=== PATIENT | male | born 1965 | race African-American/Black ===

== ENCOUNTER 2019-01-03 09:30 | Emergency (ER) | payer OTHER ==
--- NOTE | 2019-01-03 10:13 | PDOC ---
History of Present Illness - General Chief Complaint: Head/Neck problem Stated Complaint: NUMBNESS FOOT Time Seen by Provider: 01/03/19 09:49 History Source: Patient Exam Limitations: No Limitations - History of Present Illness Initial Comments: 53 year old male with PMH HTN, DM, schizophrenia, depression sent to ED from [facility] for bilateral LE pain x"many months" worsening today. Pt reported he was in physical therapy, and felt too much pain to his legs to continue, prompting him to come to the Emergency Department. Pt admitted to generalized pain below the knee bilaterally, describing the pain as waxing/ waning, numbness, worse with exertion, better with rest. Past History - Past Medical History Allergies/Adverse Reactions: Allergies Allergy/AdvReac Type Severity Reaction Status Date / Time haloperidol [From Haldol] Allergy Verified 01/03/19 09:56 haloperidol lactate Allergy Verified 01/03/19 09:56 [From Haldol] HALDOL Allergy Mild Uncoded 01/03/19 09:56 Home Medications: Ambulatory Orders Sennosides [Senna -] 2 tab PO HS #0 tablet 12/06/12 Acetaminophen [Mapap] 500 mg PO BID 01/03/19 Ammonium Lactate Lotion [Lac-Hydrin 12% Lotion -] 1 applic TP ASDIR 01/03/19 Baclofen 10 mg PO HS 01/03/19 Clozapine [Clozaril] 300 mg PO HS 01/03/19 Diclofenac Sodium [Voltaren] 2 gm TP TID 01/03/19 Divalproex Sodium [Depakote] 500 mg PO BID 01/03/19 Divalproex Sodium [Depakote] 750 mg PO HS 01/03/19 Famotidine [Pepcid] 40 mg PO DAILY 01/03/19 Gabapentin 300 mg PO TID 01/03/19 Meloxicam 15 mg PO HS 01/03/19 Tamsulosin HCl [Flomax -] 0.4 mg PO DAILY 01/03/19 metFORMIN HCL [Glucophage -] 500 mg PO BID 01/03/19 Diabetes: Yes HTN: Yes Psychiatric Problems: Yes (schizophrenia) Comment:: AMBULATES: Cane/Walker RESIDES: [facility] - Suicide/Smoking/Psychosocial Hx Smoking Status: No Smoking History: Unknown if ever smoked Have you smoked in the past 12 months: No Number of Cigarettes Smoked Daily: 7 Information on smoking cessation initiated: No 'Breaking Loose' booklet given: 10/08/11 Hx Alcohol Use: No Drug/Substance Use Hx: No Substance Use Type: None Hx Substance Use Treatment: No Review of Systems - Review of Systems Able to Perform ROS?: Yes Comments:: General: denied fever, chills, generalized weakness. HEENT: denied sore throat, rhinorrhea, ear pain. Cardiovascular: denied chest pain, palpitations, syncope, diaphoresis. Respiratory: denied shortness of breath, cough, sputum production, hemoptysis. Gastrointestinal: denied abdominal pain, nausea, vomiting, diarrhea, constipation, blood in stool. Genitourinary: denied dysuria, increased urinary frequency, hematuria, urinary incontinence, flank pain. Back: denied back pain. Musculoskeletal: admitted to bilateral LE pain. Neurological: admitted to numbness. denied headache, dizziness, tingling, weakness. Integumentary: denied rash, laceration, abrasion. Hematologic/Lymphatic: denied bruising or bleeding. *Physical Exam - Vital Signs Last Vital Signs Temp Pulse Resp BP Pulse Ox 97.7 F 97 H 16 126/86 100 01/03/19 09:30 01/03/19 09:30 01/03/19 09:30 01/03/19 09:30 01/03/19 09:30 - Physical Exam Comments: Constitutional: Well-nourished, Well-developed, appearing stated age. HEENT: head is normocephalic, atraumatic. EOMI. PERRLA. Neck: supple. Full ROM. Cardiovascular: regular heart rhythm. no murmurs. no pericardial friction rub. Respiratory: clear to auscultation bilaterally. no crackles, rhonchi or wheezing. no stridor. Gastrointestinal: soft, nontender. normal bowel sounds. no rebound, guarding, masses. Extremities: peripheral pulses intact. no lower extremity edema. no calf tenderness bilaterally. no calf swelling bilaterally. Neurological: CN 2-12 grossly intact. moves all four extremities. Psych: awake, alert, oriented x3. follows commands. answers questions appropriately. Skin: no rash or lesions to bilateral LE/feet. decreased hair to bilateral LE. ED Treatment Course - LABORATORY CBC & Chemistry Diagram: 01/03/19 10:35 01/03/19 10:35 Medical Decision Making - Medical Decision Making 53 year old male with above PMH sent to ED from [facility] for bilateral lower extremity pain xmany months worsening today during physical therapy. Initial Vital Signs Temp Pulse Resp BP Pulse Ox 97.7 F 97 H 16 126/86 100 01/03/19 09:30 01/03/19 09:30 01/03/19 09:30 01/03/19 09:30 01/03/19 09:30 Afebrile. No tachycardia. No tachypnea. No hypotension. No hypoxia on room air. Labs ordered: CBC, CMP Medications ordered: tylenol 975 mg PO once Imaging ordered: none 01/03/19 11:43 CBC WBC 6.8 K/mm3 (4.0-10.0) 01/03/19 10:35 RBC 4.05 M/mm3 (4.00-5.60) 01/03/19 10:35 Hgb 12.5 GM/dL (11.7-16.9) 01/03/19 10:35 Hct 36.9 % (35.4-49) 01/03/19 10:35 MCV 91.2 fl (80-96) 01/03/19 10:35 MCH 30.8 pg (25.7-33.7) 01/03/19 10:35 MCHC 33.8 g/dl (32.0-35.9) 01/03/19 10:35 RDW 15.9 % (11.9-15.9) D 01/03/19 10:35 Plt Count 305 K/MM3 (134-434) D 01/03/19 10:35 MPV 9.5 fl (7.5-11.1) 01/03/19 10:35 Absolute Neuts (auto) 3.8 K/mm3 (1.5-8.0) 01/03/19 10:35 Neutrophils % 55.6 % (42.8-82.8) D 01/03/19 10:35 Lymphocytes % 36.7 % (8-40) D 01/03/19 10:35 Monocytes % 6.8 % (3.8-10.2) 01/03/19 10:35 Eosinophils % 0.7 % (0-4.5) 01/03/19 10:35 Basophils % 0.2 % (0-2.0) 01/03/19 10:35 Nucleated RBC % 0 % (0-0) 01/03/19 10:35 No leukocytosis. No anemia. 01/03/19 12:15 CMP Sodium 145 mmol/L (136-145) 01/03/19 10:35 Potassium 4.2 mmol/L (3.5-5.1) 01/03/19 10:35 Chloride 112 mmol/L (98-107) H 01/03/19 10:35 Carbon Dioxide 30 mmol/L (21-32) 01/03/19 10:35 Anion Gap 4 MMOL/L (8-16) L 01/03/19 10:35 BUN 19.1 mg/dL (7-18) H 01/03/19 10:35 Creatinine 0.7 mg/dL (0.55-1.3) 01/03/19 10:35 Est GFR (CKD-EPI)AfAm 124.00 01/03/19 10:35 Est GFR (CKD-EPI)NonAf 106.99 01/03/19 10:35 Random Glucose 102 mg/dL (74-106) 01/03/19 10:35 Calcium 9.5 mg/dL (8.5-10.1) 01/03/19 10:35 Magnesium 2.1 mg/dL (1.8-2.4) 01/03/19 10:35 Total Bilirubin 0.2 mg/dL (0.2-1) 01/03/19 10:35 AST 5 U/L (15-37) L 01/03/19 10:35 ALT 12 U/L (13-61) L 01/03/19 10:35 Alkaline Phosphatase 65 U/L (45-117) 01/03/19 10:35 Total Protein 6.8 g/dl (6.4-8.2) 01/03/19 10:35 Albumin 3.4 g/dl (3.4-5.0) 01/03/19 10:35 No electrolyte abnormalities. No ERIC. No transaminitis. Pt informed of results. Pt to be transported back to [facility]. Follow up for vascular surgery given for evaluation of claudication. *DC/Admit/Observation/Transfer Diagnosis at time of Disposition: Leg pain - Discharge Dispostion Disposition: RESIDENTIAL FACILITY Condition at time of disposition: Improved Decision to Admit order: No - Referrals Referrals: Xu Ralph [Primary Care Provider] - Satish Ayala MD [Non Staff, Medical] - - Patient Instructions Printed Discharge Instructions: DI for Leg Pain Additional Instructions: Lab work was normal. Follow up with his primary care doctor within 3 days. His care is not complete until he follows up. Follow up with vascular surgery within 5 days to assess for claudication. I have provided you with a referral. Take Tylenol over the counter for pain. Take as advised on label. Return to the Emergency Department for skin color changes, inability to walk, weakness, numbness, chest pain, shortness of breath or any other new, worsening or concerning symptoms. - Post Discharge Activity
[2019-01-03] MEDS ORDERED: ACETAMINOPHEN 325 MG TABLET (FP) PO ONE (10:25)
[2019-01-03] MEDS ORDERED: ACETAMINOPHEN 325 MG TABLET (FP) ONE (10:30)
--- NOTE | 2019-01-03 10:42 | PDOC ---
Attending Attestation - Resident Resident Name: Kailey Wick - ED Attending Attestation I have performed the following: I have examined & evaluated the patient, The case was reviewed & discussed with the resident, I agree w/resident's findings & plan, Exceptions are as noted - HPI HPI: 01/03/19 10:51 53yo M hx NIDDM, schizophrenia, HTN presents to the ED with 6 months of pressure and b/l LE numbness, worse in his feet and knees. He states he was at PT this morning and was having difficulty walking due to the symptoms and thus was sent to the ED. Pt denies worsening of the symptoms recently and states he always has difficulty ambulating at PT. He denies any associated weakness, back pain, fevers, chills, urine/stool incontinence or retention. Pt has not told his PMD about this yet. On review of his medications, pt is on gabapentin 300mg TID, he is not sure why. - Physicial Exam PE: 01/03/19 11:03 GENERAL: Awake, alert, and fully oriented, in no acute distress HEAD: No signs of trauma EYES: PERRLA, EOMI, sclera anicteric, conjunctiva clear ENT: Auricles normal inspection, hearing grossly normal, nares patent, oropharynx clear without exudates. Moist mucosa. Adentulous NECK: Normal ROM, supple, no lymphadenopathy, JVD, or masses LUNGS: Breath sounds equal, clear to auscultation bilaterally. No wheezes, and no crackles HEART: Regular rate and rhythm, normal S1 and S2, no murmurs, rubs or gallops ABDOMEN: Soft, nontender, normoactive bowel sounds. No guarding, no rebound. No masses EXTREMITIES: Normal range of motion, no edema. No clubbing or cyanosis. No cords, erythema, or tenderness BACK: No midline cervical, thoracic, or lumbar ttp. NEUROLOGICAL: Normal speech, cranial nerves intact, negative pronator drift, 5/ 5 strength in all 4 extremities, normal sensation to light touch in all 4 extremities, normal cerebellar exam, normal gait, normal reflexes and tone. Normal perineal sensation. SKIN: Warm, Dry, normal turgor, no rashes or lesions noted. - Medical Decision Making 01/03/19 11:07 53yo M hx DM, HTN, schizophrenia presents to the ED with 6 months of b/l LE pain and numbness Vitals wnl Exam wnl neurolgically, 2+ DP and TP pulses b/l Likely diabetic neuropathy, as pt is on gabapentin Unlikely cauda equina as no red flags, exam wnl. Unlikely claudication/PAD as very strong peripheral pulses Plan to check basic labs, pain control, reassess 01/03/19 12:31 Labs wnl PT ambulating on his own to bathroom He feels better Likely peripheral neuropathy He is clinically stable for DC home I discussed the physical exam findings, ancillary test results and final diagnoses with the patient. I answered all of the patient's questions. The patient was satisfied with the care received and felt comfortable with the discharge plan and treatment plan. The patient will call their primary care physician within 24 hours to arrange follow-up and will return to the Emergency Department with any new, persistent or worsening symptoms.
[2019-01-03 10:46] VITALS: BMI 24.9
[2019-01-03 11:18] LABS: BASO % 0.2 % (0-2.0); EOS % 0.7 % (0-4.5); HEMATOCRIT 36.9 % (35.4-49); HEMOGLOBIN 12.5 GM/dL (11.7-16.9); LYMPH % 36.7 % (8-40); MCH 30.8 pg (25.7-33.7); MCHC 33.8 g/dl (32.0-35.9); MEAN CELL VOLUME 91.2 fl (80-96); MEAN PLT VOLUME 9.5 fl (7.5-11.1); MONO % 6.8 % (3.8-10.2); NEUT % 55.6 % (42.8-82.8); PLATELET COUNT 305 K/MM3 (134-434); RBC 4.05 M/mm3 (4.00-5.60); RDW 15.9 % (11.9-15.9); WHITE BLOOD COUNT 6.8 K/mm3 (4.0-10.0)
[2019-01-03 11:46] LABS: ALBUMIN 3.4 g/dl (3.4-5.0); BILIRUBIN,TOTAL 0.2 mg/dL (0.2-1); BLOOD UREA NITROGEN 19.1 mg/dL (7-18); CALCIUM 9.5 mg/dL (8.5-10.1); CREATININE 0.7 mg/dL (0.55-1.3); MAGNESIUM 2.1 mg/dL (1.8-2.4); POTASSIUM 4.2 mmol/L (3.5-5.1); TOT PROT 6.8 g/dl (6.4-8.2)
[2019-01-03 12:53] VITALS: BP 128/81; PULSE 98; TEMP 97.4
== END 2019-01-03 14:08 ==
LOC: JER 09:30
DX: M79.661 Pain in right lower leg (principal); M79.662 Pain in left lower leg; F20.9 Schizophrenia, unspecified; E11.9 Type 2 diabetes mellitus without complications; I10 Essential (primary) hypertension; F32.9 Major depressive disorder, single episode, unspecified
CPT/HCPCS: 36415; 80053; 83735; 85025; 99283-25

== ENCOUNTER 2019-06-04 09:40 | Inpatient (IN) | payer OTHER ==
--- NOTE | 2019-06-04 09:59 | PDOC ---
History of Present Illness - General Stated Complaint: FALL Time Seen by Provider: 06/04/19 09:46 History Source: Patient Exam Limitations: No Limitations - History of Present Illness Initial Comments: 06/04/19 10:03 Mr. Cullen is a 53 yo M with a history of Schizophrenia and Diabetes who presents to the ER via EMS due to fall Pt has been noted by staff to be increasingly weak such that now he has difficulty ambulating independently He has had multiple visits to an outside hospital Staff members became concerned today when Subhash was unable to stand at the window to get his medications today He apparently stood in his room and was witnessed by his aid to slid down to the ground He was not noted to strike his head He was unable to get himself up to a standing position after this He has no known fevers or chills Per staff member, he hordes food in his room but they are not sure how much he is eating He is not known to do any type of drugs but he has been smoking heavily daily 06/04/19 10:06 Per Subhash, he is sleepy because he was awoken at 7am for breakfast and his sleep was disrupted He has no complaints of headache, neck pain, chest pain, shortness of breath, weakness, numbness 06/04/19 10:10 ROS: GENERAL/CONSTITUTIONAL: Yes: generalized weakness No: fever, chills, loss of appetite. HEAD, EYES, EARS, NOSE AND THROAT: No: change in vision, ear pain, discharge, sore throat, throat swelling. CARDIOVASCULAR: No: chest pain, lightheadedness, palpitations, syncope RESPIRATORY: No: cough, shortness of breath, wheezing, hemoptysis, stridor. GASTROINTESTINAL: No: nausea, vomiting, diarrhea, abdominal cramping, rectal bleeding, constipation. GENITOURINARY: No: dysuria, hematuria, frequency, urgency, flank pain. MUSCULOSKELETAL: No: back pain, neck pain, joint pain, muscle swelling or pain SKIN AND BREASTS: No: lesions, pallor, rash or easy bruising. NEUROLOGIC: No: headache, vertigo, paresthesias, weakness ENDOCRINE: No: unexplained weight gain or loss HEMATOLOGIC/LYMPHATIC: No: anemia, easy bleeding, swelling nodes. PE: GENERAL: The patient is in no acute distress, pt is somnolent on examination, awakens to verbal stimuli. HEAD: Normal with no signs of trauma. EYES: PERRLA, EOMI, sclera anicteric, conjunctiva clear. ENT: Edentous, Ears normal, nares patent, oropharynx clear without exudates. Moist mucous membranes. NECK: Normal range of motion, supple without midline tenderness LUNGS: Breath sounds equal, clear to auscultation bilaterally. No wheezes, and no crackles. HEART:Regular rate and rhythm, normal S1 and S2 without murmur, rub or gallop. ABDOMEN: Soft, nontender, normoactive bowel sounds. No guarding, no rebound. EXTREMITIES: Normal range of motion, (+) 3 edema. NEUROLOGICAL: Cranial nerves II through XII grossly intact. Pt speech seems slurred, Sensation is in tact, moving all extremities MUSCULOSKELETAL: Back non-tender to palpation SKIN: Warm, Dry, normal turgor, no rashes or lesions noted. Is this a multiple visit Asthma Patient?: No Past History - Past Medical History Allergies/Adverse Reactions: Allergies Allergy/AdvReac Type Severity Reaction Status Date / Time haloperidol [From Haldol] Allergy Verified 06/04/19 10:07 haloperidol lactate Allergy Verified 06/04/19 10:07 [From Haldol] HALDOL Allergy Mild Uncoded 06/04/19 10:07 Home Medications: Ambulatory Orders Sennosides [Senna -] 2 tab PO HS #0 tablet 12/06/12 Baclofen 10 mg PO HS 01/03/19 Clozapine [Clozaril] 300 mg PO HS 01/03/19 Divalproex Sodium [Depakote] 500 mg PO DAILY 01/03/19 Divalproex Sodium [Depakote] 750 mg PO HS 01/03/19 Famotidine [Pepcid] 40 mg PO HS 01/03/19 Gabapentin 300 mg PO TIDCM 01/03/19 Tamsulosin HCl [Flomax -] 0.4 mg PO HS 01/03/19 metFORMIN HCL [Glucophage -] 500 mg PO BIDAC 01/03/19 Acetaminophen [Tylenol Extra Strength] 500 mg PO BIDAC 06/04/19 COPD: No Diabetes: Yes HTN: Yes Psychiatric Problems: Yes (schizophrenia) - Psycho Social/Smoking Cessation Hx Smoking Status: No Smoking History: Unknown if ever smoked Have you smoked in the past 12 months: No Number of Cigarettes Smoked Daily: 7 'Breaking Loose' booklet given: 10/08/11 Hx Alcohol Use: No Drug/Substance Use Hx: No Substance Use Type: None Hx Substance Use Treatment: No ED Treatment Course - LABORATORY CBC & Chemistry Diagram: 06/07/19 05:24 06/07/19 05:24 Medical Decision Making - Medical Decision Making 06/04/19 10:39 CXR: no acute pathology 06/04/19 11:23 Laboratory Tests 06/04/19 06/04/19 10:26 10:26 WBC 12.9 H Hgb 14.3 Hct 44.9 D Plt Count 308 BUN 10.6 Creatinine 0.7 Creatine Kinase 132 Troponin I < 0.02 Urine drug screen negative CT head pending 06/04/19 13:16 CT head: no acute bleed or mass or fracture No acute infarct seen Pt is somnolent but arousable CT C spine: No fracture or dislocation Pt with cough CXR nml Will admit to hospitalist service as pt remains quite somnolent Discharge - Discharge Information Problems reviewed: Yes Clinical Impression/Diagnosis: Weakness Condition: Stable - Admission Yes - Follow up/Referral - Patient Discharge Instructions - Post Discharge Activity
[2019-06-04 10:53] LABS: BASO % 0.2 % (0-2.0); EOS % 0.1 % (0-4.5); HEMATOCRIT 44.9 % (35.4-49); HEMOGLOBIN 14.3 GM/dL (11.7-16.9); LYMPH % 9.9 % (8-40); MCH 29.6 pg (25.7-33.7); MCHC 31.8 g/dl (32.0-35.9); MEAN CELL VOLUME 92.8 fl (80-96); MEAN PLT VOLUME 9.4 fl (7.5-11.1); NEUT % 81.8 % (42.8-82.8); PLATELET COUNT 308 K/MM3 (134-434); RBC 4.84 M/mm3 (4.00-5.60); RDW 16.2 % (11.9-15.9); WHITE BLOOD COUNT 12.9 K/mm3 (4.0-10.0)
[2019-06-04 11:08] LABS: COCAINE, UR NEGATIVE ng/ml (CUTOFF=300); METHADONE, UR NEGATIVE ng/ml (CUTOFF=300); OPIATES, URI NEGATIVE ng/ml (CUTOFF=300); PHENCYCLIDINE,URINE NEGATIVE ng/ml (CUTOFF=25); URINE AMPHETAMINES NEGATIVE ng/ml (CUTOFF=500); URINE BARBITURATES NEGATIVE ng/ml (CUTOFF=200); URINE BENZODIAZEPINES NEGATIVE ng/ml (CUTOFF=200)
[2019-06-04 11:11] LABS: ALBUMIN 3.6 g/dl (3.4-5.0); ALK PHOS 68 U/L (45-117); ANION GAP 5 MMOL/L (8-16); BILIRUBIN,TOTAL 0.3 mg/dL (0.2-1); BLOOD UREA NITROGEN 10.6 mg/dL (7-18); CALCIUM 9.8 mg/dL (8.5-10.1); CHLORIDE 114 mmol/L (98-107); CO2 26 mmol/L (21-32); CREATININE 0.7 mg/dL (0.55-1.3); GLUCOSE,RANDOM 142 mg/dL (74-106); POTASSIUM 3.9 mmol/L (3.5-5.1); SGOT/AST 12 U/L (15-37); SGPT/ALT 24 U/L (13-61); SODIUM 146 mmol/L (136-145); TOT PROT 7.2 g/dl (6.4-8.2)
[2019-06-04] MEDS ORDERED: CEFTRIAXONE 1 GM in DEXTROSE 5%-WATER - 50 ML IVPB ONE (15:06)
[2019-06-04] MEDS ORDERED: AZITHROMYCIN IVPB 250 MG in DEXTROSE 5%-WATER - 250 ML IVPB ONE (15:06)
--- NOTE | 2019-06-04 15:49 | HP ---
<Maximo Felicianohammad - Last Filed: 06/04/19 18:20> CHIEF COMPLAINT: Seen and examined. Please see resident note for further historical information. I personally verified all the lerma historical formation and exam findings. Personally in pretted imaging and diagnostics and reviewed appropriate results. I reviewed all labs and vital signs are per the resident note and EMR as documented. I agree with the above assessment and plan unless supplemented by myself and the following. ASSESSMENT/PLAN: Since patient has no apparent source of infection he only source of infection is possible pulmonary infection because of the green phlegm will start him on antibiotic IV fluid and just observe him how he does tomorrow. ATTENDING PHYSICIAN STATEMENT I saw and evaluated the patient. I reviewed the resident's note and discussed the case with the resident. I agree with the resident's findings and plan as documented. SUBJECTIVE: OBJECTIVE: ASSESSMENT AND PLAN: <Julito Vilchis - Last Filed: 06/05/19 04:25> CHIEF COMPLAINT: AMS, weakness PCP: Ramo Mcnair HISTORY OF PRESENT ILLNESS: 53 yo m w/ PMH schizophrenia and DM who was brought into the ED from [facility] because of generalized weakness and lethargy. The patient is altered and a poor historian, so the patient's history was obtained from the EMR and [facility] reports. Per [facility] staff, the patient has had a gradual decline in activity and strength over the past few weeks which culminated in the events from today. [facility] staff noted that the patient is normally able to do all of his ADLs independently prior to this decline. Staff noted that the patient was unable to get up out of bed todat to get his medications as he does every day. When staff went to check on him and sat him in a chair, they found that he was unable to lift himself out of the chair and activated EMS. In the emergency department, that patient was afebrile and hemodynamically stable. Upon interview, the patient is unable to provide history and describes delusions of grandeur, maintaining that he was trained by Jose R Torres's supermodel sister in martial arts. Patient has no complaints at the time of interview. Of note, the patient had 2 episodes of cough productive of green sputum. Recent Travel: none PAST MEDICAL HISTORY: see HPI PAST SURGICAL HISTORY: none Social History: Smoking: active tobacco user, amount and duration unknown Alcohol: unknown Drugs: unknown Allergies haloperidol [From Haldol] Allergy (Verified 06/04/19 10:07) haloperidol lactate [From Haldol] Allergy (Verified 06/04/19 10:07) HALDOL Allergy (Mild, Uncoded 06/04/19 10:07) HOME MEDICATIONS: Home Medications Medication Instructions Recorded Sennosides [Senna -] 2 tab PO HS #0 tablet 12/06/12 Acetaminophen [Mapap] 500 mg PO BID 01/03/19 Ammonium Lactate Lotion 1 applic TP ASDIR 01/03/19 [Lac-Hydrin 12% Lotion -] Baclofen 10 mg PO HS 01/03/19 Clozapine [Clozaril] 300 mg PO HS 01/03/19 Diclofenac Sodium [Voltaren] 2 gm TP TID 01/03/19 Divalproex Sodium [Depakote] 500 mg PO BID 01/03/19 Divalproex Sodium [Depakote] 750 mg PO HS 01/03/19 Famotidine [Pepcid] 40 mg PO DAILY 01/03/19 Gabapentin 300 mg PO TID 01/03/19 Tamsulosin HCl [Flomax -] 0.4 mg PO DAILY 01/03/19 metFORMIN HCL [Glucophage -] 500 mg PO BID 01/03/19 REVIEW OF SYSTEMS CONSTITUTIONAL: Absent: fever, chills, diaphoresis, generalized weakness, malaise, loss of appetite, weight change HEENT: Absent: rhinorrhea, nasal congestion, throat pain, throat swelling, difficulty swallowing, mouth swelling, ear pain, eye pain, visual changes CARDIOVASCULAR: Absent: chest pain, syncope, palpitations, irregular heart rate, lightheadedness , peripheral edema RESPIRATORY: Absent: cough, shortness of breath, dyspnea with exertion, orthopnea, wheezing, stridor, hemoptysis GASTROINTESTINAL: Absent: abdominal pain, abdominal distension, nausea, vomiting, diarrhea, constipation, melena, hematochezia GENITOURINARY: Absent: dysuria, frequency, urgency, hesitancy, hematuria, flank pain, genital pain MUSCULOSKELETAL: Absent: myalgia, arthralgia, joint swelling, back pain, neck pain SKIN: Absent: rash, itching, pallor HEMATOLOGIC/IMMUNOLOGIC: Absent: easy bleeding, easy bruising, lymphadenopathy, frequent infections ENDOCRINE: Absent: unexplained weight gain, unexplained weight loss, heat intolerance, cold intolerance NEUROLOGIC: Absent: headache, focal weakness or paresthesias, dizziness, unsteady gait, seizure, mental status changes, bladder or bowel incontinence PSYCHIATRIC: Absent: anxiety, depression, suicidal or homicidal ideation, hallucinations. PHYSICAL EXAMINATION Vital Signs - 24 hr 06/04/19 06/04/19 06/04/19 09:59 10:20 14:23 Temperature 98.4 F Pulse Rate 97 H Pulse Rate [ 81 Radial] Respiratory 18 20 Rate Blood Pressure 130/80 Blood Pressure 115/67 [Right Arm] O2 Sat by Pulse 97 97 100 Oximetry (%) GENERAL: Patient lethargic but easily rousable to voice. He is oriented to self and time. HEAD: Normal with no signs of trauma. EYES: Pupils equal, round and reactive to light, extraocular movements intact, sclera anicteric, conjunctiva clear. No lid lag. LUNGS: Breath sounds equal, clear to auscultation bilaterally. No wheezes, and no crackles. No accessory muscle use. HEART: Regular rate and rhythm, normal S1 and S2 without murmur, rub or gallop. ABDOMEN: Soft, nontender, not distended, normoactive bowel sounds, no guarding, no rebound, no masses. No hepatomegaly or splenomegaly. LOWER EXTREMITIES: 2+ pulses, warm, well-perfused. No calf tenderness. No peripheral edema. NEUROLOGICAL: Cranial nerves II-X intact. Normal speech. SKIN: Warm, dry, normal turgor, no rashes or lesions noted, normal capillary refill. Laboratory Results - last 24 hr 06/04/19 06/04/19 06/04/19 10:26 10:26 10:26 WBC 12.9 H RBC 4.84 Hgb 14.3 Hct 44.9 D MCV 92.8 MCH 29.6 MCHC 31.8 L RDW 16.2 H Plt Count 308 MPV 9.4 Absolute Neuts (auto) 10.5 H Neutrophils % 81.8 D Lymphocytes % 9.9 D Monocytes % 8.0 Eosinophils % 0.1 D Basophils % 0.2 Nucleated RBC % 0 Sodium 146 H Potassium 3.9 Chloride 114 H Carbon Dioxide 26 Anion Gap 5 L BUN 10.6 Creatinine 0.7 Est GFR (CKD-EPI)AfAm 124.00 Est GFR (CKD-EPI)NonAf 106.99 Random Glucose 142 H Calcium 9.8 Total Bilirubin 0.3 AST 12 L ALT 24 Alkaline Phosphatase 68 Creatine Kinase 132 Troponin I < 0.02 Total Protein 7.2 Albumin 3.6 Opiates Screen Methadone Screen Barbiturate Screen Valproic Acid 54.8 Phencyclidine Screen Ur Amphetamines Screen MDMA (Ecstasy) Screen Benzodiazepines Screen Cocaine Screen U Marijuana (THC) Screen Alcohol, Quantitative 06/04/19 06/04/19 10:26 10:39 WBC RBC Hgb Hct MCV MCH MCHC RDW Plt Count MPV Absolute Neuts (auto) Neutrophils % Lymphocytes % Monocytes % Eosinophils % Basophils % Nucleated RBC % Sodium Potassium Chloride Carbon Dioxide Anion Gap BUN Creatinine Est GFR (CKD-EPI)AfAm Est GFR (CKD-EPI)NonAf Random Glucose Calcium Total Bilirubin AST ALT Alkaline Phosphatase Creatine Kinase Troponin I Total Protein Albumin Opiates Screen Negative Methadone Screen Negative Barbiturate Screen Negative Valproic Acid Phencyclidine Screen Negative Ur Amphetamines Screen Negative MDMA (Ecstasy) Screen Negative Benzodiazepines Screen Negative Cocaine Screen Negative U Marijuana (THC) Screen Negative Alcohol, Quantitative < 3 ASSESSMENT/PLAN: 53 yo m w/ PMH schizophrenia and DM who was brought into the ED from [facility] because of generalized weakness and lethargy. #AMS, weakness and lethargy likely 2/2 infectious process vs overmedication -recent medication changes unclear at this time. -patient w/ productive cough -UA pending. -will treat the patient empirically for CAP w/ ceftriaxone and azithromycin at this time -holding nonessential sedating medications -it is unclear why the patient is on depakote at this time, as no h/o seizures in EMR. Will continue for now and contact patient's facility/ PCP for more information -will monitor patient's response to abx DM -holding oral hypoglycemics -BGM ACHS -ISS ACHS #FEN -no fluids indicated -lytes WNL -diabetic diet #prophy -lovenox 40mg SQ daily #dispo -admit med surg Visit type - Emergency Visit Emergency Visit: Yes ED Registration Date: 06/04/19 Care time: The patient presented to the Emergency Department on the above date and was hospitalized for further evaluation of their emergent condition. - New Patient This patient is new to me today: Yes Date on this admission: 06/05/19 - Critical Care Critical Care patient: No ATTENDING PHYSICIAN STATEMENT I saw and evaluated the patient. I reviewed the resident's note and discussed the case with the resident. I agree with the resident's findings and plan as documented. SUBJECTIVE: OBJECTIVE: ASSESSMENT AND PLAN:
[2019-06-04] MEDS ORDERED: CEFTRIAXONE 1 GM/50 ML BAG ONE (15:53)
[2019-06-04] MEDS ORDERED: AZITHROMYCIN IVPB 500 MG/250 ML BAG IVPB ONE (15:54)
[2019-06-04] MEDS: SODIUM CHLORIDE 1,000 ML IV SCH (16:17)
[2019-06-04 16:19] LABS: EPI CELLS 10.1 /HPF (0-5/HPF); HYALINE CASTS 18 /lpf (0-8); PH,URINE 7.5 (5.0-8.0); URINE APPEARANCE CLEAR; URINE BACTERIA 4.5 /hpf (NEGATIVE); URINE BILIRUBIN NEGATIVE (NEGATIVE); URINE COLOR YELLOW; URINE GLUCOSE (UA) TRACE (NEGATIVE); URINE KETONE TRACE (NEGATIVE); URINE LEUK ESTERASE NEGATIVE (NEGATIVE); URINE NITRITE NEGATIVE (NEGATIVE); URINE PROTEIN NEGATIVE (NEGATIVE); URINE RBC 18 /hpf (0-4); URINE WBC 6 /hpf (0-5)
[2019-06-04 23:04] VITALS: BMI 23.2
[2019-06-05] MEDS: SODIUM CHLORIDE 1,000 ML IV SCH (02:00)
[2019-06-05] MEDS: INSULIN SLIDING SCALE (NOVOLOG) 1 VIAL SQ SCH ×3 (06:15→17:06)
[2019-06-05 06:34] LABS: HEMATOCRIT 36.1 % (35.4-49); HEMOGLOBIN 11.9 GM/dL (11.7-16.9); MCHC 32.8 g/dl (32.0-35.9); MEAN CELL VOLUME 91.3 fl (80-96); MEAN PLT VOLUME 9.4 fl (7.5-11.1); PLATELET COUNT 243 K/MM3 (134-434); RBC 3.96 M/mm3 (4.00-5.60); RDW 16.2 % (11.9-15.9); WHITE BLOOD COUNT 10.3 K/mm3 (4.0-10.0)
[2019-06-05 06:59] LABS: ALBUMIN 2.7 g/dl (3.4-5.0); BILIRUBIN,TOTAL 0.2 mg/dL (0.2-1); CALCIUM 8.7 mg/dL (8.5-10.1); CREATININE 0.7 mg/dL (0.55-1.3); MAGNESIUM 2.2 mg/dL (1.8-2.4); PHOSPHOROUS 3.5 mg/dL (2.5-4.9); POTASSIUM 4.2 mmol/L (3.5-5.1); TOT PROT 5.5 g/dl (6.4-8.2)
[2019-06-05] MEDS ORDERED: DEXTROSE 5%-WATER - 50 ML IVPB ONE (08:59)
[2019-06-05] MEDS ORDERED: cefTRIAXone SODIUM 1 GM VIAL ONE (08:59)
[2019-06-05] MEDS: ENOXAPARIN NA (PORCINE) 40 MG/0.4 ML DISP.SYRIN SQ SCH (09:20)
[2019-06-05] MEDS: DIVALPROEX SODIUM 500 MG TABLET E.C. PO SCH (09:20)
[2019-06-05] MEDS ORDERED: CEFTRIAXONE 1 GM in DEXTROSE 5%-WATER - 50 ML IVPB SCH (10:00)
[2019-06-05] MEDS ORDERED: AZITHROMYCIN IVPB 250 MG in DEXTROSE 5%-WATER - 250 ML IVPB SCH (10:00)
--- NOTE | 2019-06-05 13:35 | EKG ---
Test Reason : Blood Pressure : / mmHG Vent. Rate : 074 BPM Atrial Rate : 074 BPM P-R Int : 154 ms QRS Dur : 086 ms QT Int : 354 ms P-R-T Axes : 081 026 037 degrees QTc Int : 392 ms NORMAL SINUS RHYTHM SEPTAL INFARCT , AGE UNDETERMINED ABNORMAL ECG WHEN COMPARED WITH ECG OF 01-DEC-2012 08:02, NO SIGNIFICANT CHANGE WAS FOUND Confirmed by DAVEY WEISS MD ([id number]) on 06/05/2019 1:35:34 PM Referred By: Confirmed By:DAVEY WEISS MD
--- NOTE | 2019-06-05 15:43 | PN ---
Progress Note (short form) - Note Progress Note: Subjective: no fever or chills. no pain, no change in vision . he [facility] , his mentatio is at base line, and " it comed and goes" per staff. he gets confsed on and off. he was sent due to progressed weakness over past few weeks. he slid off the bed yesterday and could not get up. gait is worse . no fever or chills or note of cough at facility Objective: Vital Signs: Last Vital Signs Temp Pulse Resp BP Pulse Ox 98.1 F 85 16 151/83 97 06/05/19 13:00 06/05/19 13:00 06/05/19 13:00 06/05/19 13:00 06/05/19 09:00 Laboratory Results - last 24 hr 06/04/19 06/04/19 06/05/19 15:20 22:20 06:00 WBC 10.3 H RBC 3.96 L Hgb 11.9 Hct 36.1 D MCV 91.3 MCH 30.0 MCHC 32.8 RDW 16.2 H Plt Count 243 D MPV 9.4 Sodium Potassium Chloride Carbon Dioxide Anion Gap BUN Creatinine Est GFR (CKD-EPI)AfAm Est GFR (CKD-EPI)NonAf POC Glucometer 165 Random Glucose Calcium Phosphorus Magnesium Total Bilirubin AST ALT Alkaline Phosphatase Total Protein Albumin TSH Urine Color Yellow Urine Appearance Clear Urine pH 7.5 D Ur Specific Lang[place] 1.023 Urine Protein Negative Urine Glucose (UA) Trace Urine Ketones Trace H Urine Blood Trace Urine Nitrite Negative Urine Bilirubin Negative Urine Urobilinogen 1.0 Ur Leukocyte Esterase Negative Urine WBC (Auto) 6 Urine RBC (Auto) 18 Urine Casts (Auto) 18 U Epithel Cells (Auto) 10.1 Urine Bacteria (Auto) 4.5 06/05/19 06/05/19 06/05/19 06:00 06:15 11:35 WBC RBC Hgb Hct MCV MCH MCHC RDW Plt Count MPV Sodium 145 Potassium 4.2 Chloride 113 H Carbon Dioxide 26 Anion Gap 5 L BUN 14.0 Creatinine 0.7 Est GFR (CKD-EPI)AfAm 124.00 Est GFR (CKD-EPI)NonAf 106.99 POC Glucometer 141 137 Random Glucose 131 H Calcium 8.7 Phosphorus 3.5 Magnesium 2.2 Total Bilirubin 0.2 AST 10 L ALT 18 Alkaline Phosphatase 53 Total Protein 5.5 L Albumin 2.7 L TSH 0.23 L Urine Color Urine Appearance Urine pH Ur Specific Lang[place] Urine Protein Urine Glucose (UA) Urine Ketones Urine Blood Urine Nitrite Urine Bilirubin Urine Urobilinogen Ur Leukocyte Esterase Urine WBC (Auto) Urine RBC (Auto) Urine Casts (Auto) U Epithel Cells (Auto) Urine Bacteria (Auto) Physical Exam: NAd, awake, alert, he knows his age and address.pleasant and cooperative . poor dentition , MMM Cv: RRr, no mRG Lungs: CTAB ext : No edema no erythema, no rash Neuro: no facial droop, EOMI, tongue and uvula at midline sensation to light touch nl. strength 5/5 in upper and lower extremities proximally and distally. 2+ knee jerk and biceps b/l . gait, had a couple steps with unsteadiness and almost fell Imaging: CT head/spine ,cxray and EKG reviewed. Assessment/Plan: 53 y/o man with h/o Schizophrenia , and DM who presented form independent living due to worsening gait and progressed weakness 1- Abnormal gait 2- H/o Schizophrenia . mentation at base line 3- No signs of infection . pulmonary or urinary 4- H/o DM 5- Abn TSH 6- H/o Schizophrenia plan : - not clear on cause of worsening gait. no focal deficits on exam. doubt a stroke or brain tumor. ? neuropathy . - check B12. -folate , RPR. - will repeat TSH. with FT3/4 - will ask neuro for help. ? MRI of the brain ? EMG/NCS - dc Abx. no evidence of infection. rpeat Santiago after hydrtion with no infiltrate. no crackles on exam. No fever . leukocytosis might have been reactive - dc IVF looks euvolemic - cont cozapine and depakote - cont SSI for now . hold metformin - DVT Px: lovenox Independent living records reviewed. meds confirmed. spoke to staff Visit type - Emergency Visit Emergency Visit: Yes ED Registration Date: 06/04/19 Care time: The patient presented to the Emergency Department on the above date and was hospitalized for further evaluation of their emergent condition. - New Patient This patient is new to me today: Yes Date on this admission: 06/05/19 - Critical Care Critical Care patient: No
[2019-06-05] MEDS ORDERED: DIVALPROEX SODIUM 500 MG TABLET E.C. ONE (21:41)
[2019-06-05] MEDS ORDERED: PT OWN MED DRAWER 7, Y5N ONE (21:42)
[2019-06-05] MEDS ORDERED: DIVALPROEX SODIUM 250 MG TABLET E.C. ONE (21:42)
[2019-06-05] MEDS ORDERED: cloZAPine 100 MG TABLET PO SCH (22:00)
[2019-06-05] MEDS ORDERED: DIVALPROEX SODIUM 250 MG TABLET E.C. PO SCH (22:00)
[2019-06-05] MEDS: cloZAPine 100 MG TABLET PO SCH (22:04)
[2019-06-05] MEDS: TAMSULOSIN HCL 0.4 MG CAP PO SCH (22:04)
[2019-06-05] MEDS: DIVALPROEX 500 MG, DIVALPROEX 250 MG PO SCH (22:04)
[2019-06-06] MEDS ORDERED: MELATONIN 5 MG TABLETS PO ONE (00:16)
[2019-06-06] MEDS ORDERED: LORazepam 2 MG/ML SDV VIAL IVPUSH ONE (01:35)
[2019-06-06 06:20] LABS: BASO % 0.4 % (0-2.0); EOS % 0.9 % (0-4.5); HEMATOCRIT 41.7 % (35.4-49); HEMOGLOBIN 13.8 GM/dL (11.7-16.9); LYMPH % 51.1 % (8-40); MCH 30.5 pg (25.7-33.7); MCHC 33.2 g/dl (32.0-35.9); MEAN CELL VOLUME 91.8 fl (80-96); MEAN PLT VOLUME 9.5 fl (7.5-11.1); MONO % 7.5 % (3.8-10.2); NEUT % 40.1 % (42.8-82.8); PLATELET COUNT 266 K/MM3 (134-434); RBC 4.54 M/mm3 (4.00-5.60); RDW 16.3 % (11.9-15.9); WHITE BLOOD COUNT 7.7 K/mm3 (4.0-10.0)
[2019-06-06] MEDS: INSULIN SLIDING SCALE (NOVOLOG) 1 VIAL SQ SCH ×3 (06:56→17:18)
[2019-06-06] MEDS: DIVALPROEX SODIUM 500 MG TABLET E.C. PO SCH (09:33)
[2019-06-06] MEDS: ENOXAPARIN NA (PORCINE) 40 MG/0.4 ML DISP.SYRIN SQ SCH (09:33)
--- NOTE | 2019-06-06 10:07 | CON.NEURO ---
Consult - Alcohol/Substance Use Hx Alcohol Use: No - Smoking History Smoking history: Current every day smoker Have you smoked in the past 12 months: Yes Aproximately how many cigarettes per day: 4 Home Medications - Allergies Allergies/Adverse Reactions: Allergies Allergy/AdvReac Type Severity Reaction Status Date / Time haloperidol [From Haldol] Allergy Verified 06/04/19 10:07 haloperidol lactate Allergy Verified 06/04/19 10:07 [From Haldol] HALDOL Allergy Mild Uncoded 06/04/19 10:07 - Home Medications Home Medications: Ambulatory Orders Sennosides [Senna -] 2 tab PO HS #0 tablet 12/06/12 Baclofen 10 mg PO HS 01/03/19 Clozapine [Clozaril] 300 mg PO HS 01/03/19 Divalproex Sodium [Depakote] 500 mg PO DAILY 01/03/19 Divalproex Sodium [Depakote] 750 mg PO HS 01/03/19 Famotidine [Pepcid] 40 mg PO HS 01/03/19 Gabapentin 300 mg PO TIDCM 01/03/19 Tamsulosin HCl [Flomax -] 0.4 mg PO HS 01/03/19 metFORMIN HCL [Glucophage -] 500 mg PO BIDAC 01/03/19 Acetaminophen [Tylenol Extra Strength] 500 mg PO BIDAC 06/04/19 Ibuprofen 600 mg PO QID PRN 06/04/19 Physical Exam-Neuro Vital Signs: Vital Signs Temperature 98 F 06/06/19 06:00 Pulse Rate 67 06/06/19 06:00 Respiratory Rate 18 06/06/19 06:00 Blood Pressure 151/90 06/06/19 06:00 O2 Sat by Pulse Oximetry (%) 97 06/05/19 21:00 Labs: CBC, BMP 06/06/19 05:05 06/05/19 06:00 Assessment/Plan cc fall and abnormal movement HPI 53 year old male history of Schizophrenia, DM. He presents to ed as he has fall. Patient has difficulty ambulating and has been runnign into things. Patient denies nay neck pain or back , no bowel or bladder incontinence. Patient has ct head and ct of c spine it was unremarkable. He has been on antipyschotic medication for a long time. PMH as above Allergies/Adverse Reactions: Allergies Allergy/AdvReac Type Severity Reaction Status Date / Time haloperidol [From Haldol] Allergy Verified 06/04/19 10:07 haloperidol lactate Allergy Verified 06/04/19 10:07 [From Haldol] HALDOL Allergy Mild Uncoded 06/04/19 10:07 Home Medications: Sennosides [Senna -] 2 tab PO HS #0 tablet 12/06/12 Acetaminophen [Mapap] 500 mg PO BID 01/03/19 Ammonium Lactate Lotion [Lac-Hydrin 12% Lotion -] 1 applic TP ASDIR 01/03/19 Baclofen 10 mg PO HS 01/03/19 Clozapine [Clozaril] 300 mg PO HS 01/03/19 Diclofenac Sodium [Voltaren] 2 gm TP TID 01/03/19 Divalproex Sodium [Depakote] 500 mg PO BID 01/03/19 Divalproex Sodium [Depakote] 750 mg PO HS 01/03/19 Famotidine [Pepcid] 40 mg PO DAILY 01/03/19 Gabapentin 300 mg PO TID 01/03/19 Tamsulosin HCl [Flomax -] 0.4 mg PO DAILY 01/03/19 metFORMIN HCL [Glucophage -] 500 mg PO BID 01/03/19 ROS,FH,SH reviewed in chart NEUROLOGICAL EXAMINATION Alert oriented x 2, sitting at nursing station, no acute distress, neck is supple vss eomi, pupils reactive no face asymmetry he has action tremors in upper extremity and there is dyskinesia at rest well He can stand up but find it very difficulty to walk as he is swaying to both side. there is slight bradykinesia [id number] reflex are symmetrical planter is flexor ct head and ct c spine is normal Assessment/Plan 53 year old male history of schizophrenia, DM. He has difficulty with walking , there is no evidence of cord compression, stroke. 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
--- NOTE | 2019-06-06 19:10 | PN ---
Physical Exam: SUBJECTIVE: Patient seen and examined O/N: was agitated and was brought to the Nurses's station for trying to get out of bed -Complaining of lower back pain and trouble standing up. OBJECTIVE: Vital Signs Period Temp Pulse Resp BP Sys/Lo[place]on Pulse Ox Last 24 Hr 97.5 F-98.3 F 66-92 18-20 138-153/74-90 97-99 GENERAL: The patient is awake, alert. No acute distress HEAD: NC/AT EYES: extraocular movements intact, sclera anicteric, conjunctiva clear. No ptosis. ENT: Ears normal, nares patent, oropharynx clear without exudates, moist mucous membranes. NECK: Trachea midline, full range of motion, supple. LUNGS: Breath sounds equal, clear to auscultation bilaterally, no wheezes, no crackles, no accessory muscle use. HEART: Regular rate and rhythm, S1, S2 without murmur, rub or gallop. ABDOMEN: Soft, nontender, nondistended, normoactive bowel sounds, no guarding, no rebound. EXTREMITIES: 2+ pulses, warm, well-perfused, no edema. NEUROLOGICAL: Cranial nerves II through XII grossly intact. Normal speech. Truncal ataxia with standing. Irregular gait PSYCH: Normal mood, normal affect. SKIN: Warm, dry, normal turgor, no rashes or lesions noted Laboratory Results - last 24 hr 06/05/19 06/06/19 06/06/19 22:02 05:05 05:05 WBC 7.7 RBC 4.54 Hgb 13.8 Hct 41.7 D MCV 91.8 MCH 30.5 MCHC 33.2 RDW 16.3 H Plt Count 266 MPV 9.5 Absolute Neuts (auto) 3.1 Neutrophils % 40.1 L D Lymphocytes % 51.1 H D Monocytes % 7.5 Eosinophils % 0.9 D Basophils % 0.4 Nucleated RBC % 0 POC Glucometer 143 Vitamin B12 528 Serum Folate 17 TSH 2.10 D Free T4 1.04 RPR Titer 06/06/19 06/06/19 06/06/19 05:05 06:14 11:16 WBC RBC Hgb Hct MCV MCH MCHC RDW Plt Count MPV Absolute Neuts (auto) Neutrophils % Lymphocytes % Monocytes % Eosinophils % Basophils % Nucleated RBC % POC Glucometer 105 142 Vitamin B12 Serum Folate TSH Free T4 RPR Titer Nonreactive 06/06/19 17:10 WBC RBC Hgb Hct MCV MCH MCHC RDW Plt Count MPV Absolute Neuts (auto) Neutrophils % Lymphocytes % Monocytes % Eosinophils % Basophils % Nucleated RBC % POC Glucometer 169 Vitamin B12 Serum Folate TSH Free T4 RPR Titer Active Medications Generic Name Dose Route Start Last Admin Trade Name Freq PRN Reason Stop Dose Admin Benztropine Mesylate 0.5 mg 06/06/19 22:00 Cogentin - PO BID ISIDRO Clozapine 300 mg 06/05/19 22:00 06/05/19 22:04 Clozaril - PO 300 mg HS ISIDRO Administration Divalproex Sodium 500 mg 06/05/19 10:00 06/06/19 09:33 Depakote - PO 500 mg DAILY ISIDRO Administration Divalproex Sodium 500 mg/ 750 mg 06/05/19 22:00 06/05/19 22:04 Divalproex Sodium 250 mg PO 750 mg HS ISIDRO Administration Enoxaparin Sodium 40 mg 06/05/19 10:00 06/06/19 09:33 Lovenox - SQ 40 mg DAILY ISIDRO Administration Insulin Aspart 1 vial 06/05/19 16:30 06/06/19 17:18 Novolog Vial Sliding Scale - SQ 2 units TIDAC ISIDRO Administration Protocol Tamsulosin HCl 0.4 mg 06/05/19 22:00 06/05/19 22:04 Flomax - PO 0.4 mg HS ISIDRO Administration ASSESSMENT/PLAN: 53 yo m w/ PMH schizophrenia and DM who was brought into the ED from [facility] because of generalized weakness and lethargy. Had complaints of productive cough a few days prior to admission. Cough has resolved #AMS, --possibly weakness and lethargy likely 2/2 overmedication, unlikely infectious process > CTH: neg for acute path > UDS: neg > UA: trace ketones, trace blood > RPR: neg > B12 528, Folate 17 > TSH 2.1 - s/p empiric tx for CAP w/ ceftriaxone and azithromycin -holding nonessential sedating medications -it is unclear why the patient is on depakote at this time, as no h/o seizures in EMR. Will continue for now and contact patient's facility/ PCP for more information - Neuro(Gianni) consult: no evidence of cord compression, stroke. Suspect extrpyramidal syndrome secondary to antipsychotic medication use -- give benadryl 50 mg iv once -- start cogentin .5 mg po bid -- PT: 50ft -- psych consult to evaluate psych medication -- inpt Rehab DM -holding oral hypoglycemics -BGM ACHS -ISS ACHS #FEN -no fluids indicated -lytes WNL -diabetic diet #prophy -lovenox 40mg SQ daily #dispo -admit med surg Visit type - Emergency Visit Emergency Visit: No - New Patient This patient is new to me today: No - Critical Care Critical Care patient: No ATTENDING PHYSICIAN STATEMENT I saw and evaluated the patient. I reviewed the resident's note and discussed the case with the resident. I agree with the resident's findings and plan as documented. SUBJECTIVE: OBJECTIVE: ASSESSMENT AND PLAN:
--- NOTE | 2019-06-06 19:34 | PN ---
Teaching Attending Note Name of Resident: Lamonte Shields ATTENDING PHYSICIAN STATEMENT I saw and evaluated the patient. I reviewed the resident's note and discussed the case with the resident. I agree with the resident's findings and plan as documented. SUBJECTIVE: No fever or chills. no pain. no N/V. OBJECTIVE: NAd, awake, alert, he knows his age and thinks he is in the NH . poor dentition , MMM Cv: RRR, no mRG Lungs: CTAB Ext : No edema no erythema, no rash Assessment/Plan: 53 y/o man with h/o Schizophrenia , and DM who presented form independent living due to worsening gait and progressed weakness 1- Abnormal gait : possible extrapyramidal symptoms from antipsychotics 2- H/o Schizophrenia . mentation at base line 3- No signs of infection . pulmonary or urinary 4- H/o DM 5- Abn TSH 6- H/o Schizophrenia plan : - Appreciate Dr. Archer help. benztropine and benadryl ordered - will monitor sx and side effects - cont clozapine for now but consult psych to evaluate - folate , RPR pending - repeat TSH. with FT3/4 Nl - cont cozapine and depakote - cont SSI for now . hold metformin - DVT Px: lovenox dispo : [facility]LOC
[2019-06-06] MEDS ORDERED: PT OWN MED DRAWER 7, Y5N ONE (21:12)
[2019-06-06] MEDS ORDERED: DIVALPROEX SODIUM 500 MG TABLET E.C. ONE (21:12)
[2019-06-06] MEDS ORDERED: DIVALPROEX SODIUM 250 MG TABLET E.C. ONE (21:12)
[2019-06-06] MEDS: TAMSULOSIN HCL 0.4 MG CAP PO SCH (21:16)
[2019-06-06] MEDS: DIVALPROEX 500 MG, DIVALPROEX 250 MG PO SCH (21:16)
[2019-06-06] MEDS: BENZTROPINE MESYLATE 0.5 MG TABLET (FP) PO SCH (21:16)
[2019-06-06] MEDS: cloZAPine 100 MG TABLET PO SCH (21:17)
[2019-06-07] MEDS: INSULIN SLIDING SCALE (NOVOLOG) 1 VIAL SQ SCH ×3 (06:58→17:14)
[2019-06-07 07:27] LABS: HEMATOCRIT 40.1 % (35.4-49); HEMOGLOBIN 13.3 GM/dL (11.7-16.9); MCH 30.1 pg (25.7-33.7); MCHC 33.1 g/dl (32.0-35.9); MEAN CELL VOLUME 90.9 fl (80-96); MEAN PLT VOLUME 9.3 fl (7.5-11.1); PLATELET COUNT 317 K/MM3 (134-434); RBC 4.41 M/mm3 (4.00-5.60); WHITE BLOOD COUNT 5.5 K/mm3 (4.0-10.0)
[2019-06-07 07:58] LABS: BLOOD UREA NITROGEN 8.9 mg/dL (7-18); CALCIUM 9.5 mg/dL (8.5-10.1); CREATININE 0.6 mg/dL (0.55-1.3); MAGNESIUM 2.4 mg/dL (1.8-2.4); PHOSPHOROUS 3.8 mg/dL (2.5-4.9); POTASSIUM 4.4 mmol/L (3.5-5.1)
[2019-06-07] MEDS ORDERED: PT OWN MED DRAWER 7, Y5N ONE ×2 (09:47→21:03)
[2019-06-07] MEDS: ENOXAPARIN NA (PORCINE) 40 MG/0.4 ML DISP.SYRIN SQ SCH (10:34)
[2019-06-07] MEDS: DIVALPROEX SODIUM 500 MG TABLET E.C. PO SCH (10:34)
[2019-06-07] MEDS: BENZTROPINE MESYLATE 0.5 MG TABLET (FP) PO SCH (10:34)
--- NOTE | 2019-06-07 16:17 | CON.PSY ---
Psychiatry Consult Chief Complaint: 53 year old male with Schizophrenia chronic admitted with sedation and falls. On Clozaril and depakote. Patient seen for Kaylene pérez.WBC 5.5 - Previous Psychiatric Treatment Outpatient: Less than 6 mos ago Inpatient: 2 or more prior admissions - Previous Substance Abuse Treatment Outpatient: None Inpatient: None - Reason for Previous Treatment Reason for Previous Treatment: Psychotic Episode - Current Medications Current Medications: Active Medications Clozapine (Clozaril -) 300 mg PO [facility] Last Admin: 06/06/19 21:17 Dose: 300 mg Divalproex Sodium (Depakote -) 500 mg PO DAILY [facility] Last Admin: 06/07/19 10:34 Dose: 500 mg Divalproex Sodium 500 mg/ (Divalproex Sodium 250 mg) 750 mg PO [facility] Last Admin: 06/06/19 21:16 Dose: 750 mg Enoxaparin Sodium (Lovenox -) 40 mg SQ DAILY [facility] Last Admin: 06/07/19 10:34 Dose: 40 mg Insulin Aspart (Novolog Vial Sliding Scale -) 1 vial SQ TIDAC [facility]; Protocol Last Admin: 06/07/19 12:02 Dose: 2 units Tamsulosin HCl (Flomax -) 0.4 mg PO [facility] Last Admin: 06/06/19 21:16 Dose: 0.4 mg - Allergies Allergies: Allergies Allergy/AdvReac Type Severity Reaction Status Date / Time haloperidol [From Haldol] Allergy Verified 06/04/19 10:07 haloperidol lactate Allergy Verified 06/04/19 10:07 [From Haldol] HALDOL Allergy Mild Uncoded 06/04/19 10:07 - Current Living Status Usual Living Arrangement: Assisted Living - Current Mental Status Evaluation Appearance: Well Groomed Attitude: Cooperative - Affect Affect: Constrictive Appropriateness: Appropriate to Content - Mood Mood: Euthymic - Speech/Language Expressive: Coherent - Psychomotor Activity Psychomotor Activity: Normal - Thought Process Thought Process: Intact - Thought Content Hallucinations: Absent Delusions: Absent - Self Perception Self Perception: No Impairment - Cognition Attention: Alert Orientation: Time Memory, Immediate Recall: Intact Memory, Short Term: 2/3 Memory, Remote with Promptin/3 - Concentration Serial Sevens Intact: No Simple Calculations Intact: Yes - Abstraction Proverb Interpretation: Intact Judgement: Intact - Insight Insight: Intact - Impulse Control Impulse Control: Good Control - Suicidal Ideation Suicidal Ideation: No - Homicidal Ideation Homicidal Ideation: No Assessment/Plan 1) WBC 5.5 2) 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 3) d/c cogentin. 4) can return to [facility].
--- NOTE | 2019-06-07 17:24 | PN ---
Progress Note (short form) - Note Progress Note: cc fall and abnormal movement HPI 53 year old male history of Schizophrenia, DM. He presents to ed as he has fall. Patient has difficulty ambulating and has been runnign into things. Patient denies nay neck pain or back , no bowel or bladder incontinence. Patient has ct head and ct of c spine it was unremarkable. He has been on antipyschotic medication for a long time. NEUROLOGICAL EXAMINATION Alert oriented x 2, sitting at nursing station, no acute distress, neck is supple vss eomi, pupils reactive no face asymmetry he has action tremors in upper extremity and there is dyskinesia at rest well He can stand up but find it very difficulty to walk as he is swaying to both side. there is slight bradykinesia [id number] reflex are symmetrical planter is flexor ct head and ct c spine is normal Assessment/Plan 53 year old male history of schizophrenia, DM. He has difficulty with walking , there is no evidence of cord compression, stroke. His symptoms are due to due to extrpyramidal syndrome secondary to antipsychotic medication use. psych consult appreciated. he is slightly better after iv benadryl. Plan: antipsychomatic medicaiton as per psych - pt - cogentin was stopped by psych - patient can be discharged from neurological point of view. Thanking you so much
--- NOTE | 2019-06-07 17:52 | PN ---
Teaching Attending Note Name of Resident: Lamonte Shields ATTENDING PHYSICIAN STATEMENT I saw and evaluated the patient. I reviewed the resident's note and discussed the case with the resident. I agree with the resident's findings and plan as documented. SUBJECTIVE: No fever or chills. no pain OBJECTIVE: NAd, awake, alert, he knows his age and thinks he is in the NH. poor dentition, MMM Cv: RRR, no MRG Lungs: CTAB Ext : No edema No erythema, no rash Assessment/Plan: 53 y/o man with h/o Schizophrenia , and DM who presented form independent living due to worsening gait and progressed weakness 1- Abnormal gait: possible extrapyramidal symptoms from antipsychotics 2- H/o Schizophrenia. mentation at base line 3- No signs of infection. pulmonary or urinary 4- H/o DM 5- Abn TSH 6- H/o Schizophrenia 7- Tardive dyskinesia of face Plan: - Cogentin was stopped - Cont clozapine - Folate, B12, TSH/FT3/Ft4 nl. RPR non reactive - Cont cozapine and depakote. - cont SSI for now. hold metformin - DVT Px: lovenox patient is clinically stable for dc to his independent living, however, he was evaluated by psych late during the day and facility will not accept him per social worker school. will dc in am
--- NOTE | 2019-06-07 18:34 | PN ---
Physical Exam: SUBJECTIVE: Patient seen and examined EMILY pt having appeptite, still with trouble walking OBJECTIVE: Vital Signs Period Temp Pulse Resp BP Sys/Lofton Pulse Ox Last 24 Hr 97.9 F-98.6 F 80-107 18-20 119-150/65-94 98-100 GENERAL: The patient is awake, alert. No acute distress HEAD: NC/AT EYES: extraocular movements intact, sclera anicteric, conjunctiva clear. No ptosis. ENT: Ears normal, nares patent, oropharynx clear without exudates, moist mucous membranes. NECK: Trachea midline, full range of motion, supple. LUNGS: Breath sounds equal, clear to auscultation bilaterally, no wheezes, no crackles, no accessory muscle use. HEART: Regular rate and rhythm, S1, S2 without murmur, rub or gallop. ABDOMEN: Soft, nontender, nondistended, normoactive bowel sounds, no guarding, no rebound. EXTREMITIES: 2+ pulses, warm, well-perfused, no edema. NEUROLOGICAL: Cranial nerves II through XII grossly intact. Normal speech. Truncal ataxia with standing. Irregular gait PSYCH: Normal mood, normal affect. SKIN: Warm, dry, normal turgor, no rashes or lesions noted Laboratory Results - last 24 hr 06/06/19 06/06/19 06/07/19 05:05 21:20 05:24 WBC 5.5 RBC 4.41 Hgb 13.3 Hct 40.1 MCV 90.9 MCH 30.1 MCHC 33.1 RDW 16.0 H Plt Count 317 MPV 9.3 Sodium Potassium Chloride Carbon Dioxide Anion Gap BUN Creatinine Est GFR (CKD-EPI)AfAm Est GFR (CKD-EPI)NonAf POC Glucometer 154 Random Glucose Calcium Phosphorus Magnesium Free T3 3.1 06/07/19 06/07/19 06/07/19 05:24 06:57 12:00 WBC RBC Hgb Hct MCV MCH MCHC RDW Plt Count MPV Sodium 143 Potassium 4.4 Chloride 110 H Carbon Dioxide 28 Anion Gap 4 L BUN 8.9 Creatinine 0.6 Est GFR (CKD-EPI)AfAm 132.11 Est GFR (CKD-EPI)NonAf 113.99 POC Glucometer 81 151 Random Glucose 106 Calcium 9.5 Phosphorus 3.8 Magnesium 2.4 Free T3 06/07/19 17:13 WBC RBC Hgb Hct MCV MCH MCHC RDW Plt Count MPV Sodium Potassium Chloride Carbon Dioxide Anion Gap BUN Creatinine Est GFR (CKD-EPI)AfAm Est GFR (CKD-EPI)NonAf POC Glucometer 164 Random Glucose Calcium Phosphorus Magnesium Free T3 Active Medications Generic Name Dose Route Start Last Admin Trade Name Danyq PRN Reason Stop Dose Admin Clozapine 300 mg 06/05/19 22:00 06/06/19 21:17 Clozaril - PO 300 mg HS ISIDRO Administration Divalproex Sodium 500 mg 06/05/19 10:00 06/07/19 10:34 Depakote - PO 500 mg DAILY ISIDRO Administration Divalproex Sodium 500 mg/ 750 mg 06/05/19 22:00 06/06/19 21:16 Divalproex Sodium 250 mg PO 750 mg HS ISIDRO Administration Enoxaparin Sodium 40 mg 06/05/19 10:00 06/07/19 10:34 Lovenox - SQ 40 mg DAILY ISIDRO Administration Insulin Aspart 1 vial 06/05/19 16:30 06/07/19 17:14 Novolog Vial Sliding Scale - SQ 2 units TIDAC ISIDRO Administration Protocol Tamsulosin HCl 0.4 mg 06/05/19 22:00 06/06/19 21:16 Flomax - PO 0.4 mg HS ISIDRO Administration ASSESSMENT/PLAN: 53 yo m w/ PMH schizophrenia and DM who was brought into the ED from [facility] because of generalized weakness and lethargy. Had complaints of productive cough a few days prior to admission. Cough has resolved. Neuro surgery started on Cogentin for EPS 2/2 antipsychotic meds. Psych(Chepuru) dc'd congentin. Possible suicide ideation #AMS, --possibly weakness and lethargy likely 2/2 overmedication, unlikely infectious process > CTH: neg for acute path > UDS: neg > UA: trace ketones, trace blood > RPR: neg > B12 528, Folate 17 > TSH 2.1 - s/p empiric tx for CAP w/ ceftriaxone and azithromycin -holding nonessential sedating medications -it is unclear why the patient is on depakote at this time, as no h/o seizures in EMR. Will continue for now and contact patient's facility/ PCP for more information - Neuro(Gianni) consult: no evidence of cord compression, stroke. Suspect extrpyramidal syndrome secondary to antipsychotic medication use -- give benadryl 50 mg iv once -- start cogentin .5 mg po bid -- PT: 50ft -- psych consult to evaluate psych medication -- inpt Rehab #suicide ideation - Psych(Chetranguru) consult: --Tardive Dykenesia of Buccal and oral type. --d/c cogentin. --can return to [place] [facility] DM -holding oral hypoglycemics -BGM ACHS -ISS ACHS #FEN -no fluids indicated -lytes WNL -diabetic diet #prophy -lovenox 40mg SQ daily #dispo -admit med surg Visit type - Emergency Visit Emergency Visit: No - New Patient This patient is new to me today: No - Critical Care Critical Care patient: No ATTENDING PHYSICIAN STATEMENT I saw and evaluated the patient. I reviewed the resident's note and discussed the case with the resident. I agree with the resident's findings and plan as documented. SUBJECTIVE: OBJECTIVE: ASSESSMENT AND PLAN:
[2019-06-07] MEDS ORDERED: DIVALPROEX SODIUM 500 MG TABLET E.C. ONE (21:02)
[2019-06-07] MEDS ORDERED: DIVALPROEX SODIUM 250 MG TABLET E.C. ONE (21:03)
[2019-06-07] MEDS: cloZAPine 100 MG TABLET PO SCH (21:09)
[2019-06-07] MEDS: TAMSULOSIN HCL 0.4 MG CAP PO SCH (21:09)
[2019-06-07] MEDS: DIVALPROEX 500 MG, DIVALPROEX 250 MG PO SCH (21:09)
[2019-06-08] MEDS: INSULIN SLIDING SCALE (NOVOLOG) 1 VIAL SQ SCH ×2 (06:25→11:48)
--- NOTE | 2019-06-08 08:35 | PN ---
Teaching Attending Note Name of Resident: Hermes Dash ATTENDING PHYSICIAN STATEMENT I saw and evaluated the patient. I reviewed the resident's note and discussed the case with the resident. I agree with the resident's findings and plan as documented. SUBJECTIVE: Patient is feeling better with no acute distress. symptoms improved would [facility]. OBJECTIVE: Vital Signs Temperature 97.6 F 06/08/19 06:00 Pulse Rate 68 06/08/19 06:00 Respiratory Rate 18 06/08/19 06:00 Blood Pressure 120/73 06/08/19 06:00 O2 Sat by Pulse Oximetry (%) 98 06/07/19 20:33 GENERAL: The patient is awake, alert, and fully oriented, in no acute distress. HEAD: Normal with no signs of trauma. EYES: PERRL, extraocular movements intact, sclera anicteric, conjunctiva clear. ENT: Ears normal, oropharynx clear without exudates, moist mucous membranes. poor dentition NECK: Trachea midline, full range of motion, supple. LUNGS: Breath sounds equal, clear to auscultation bilaterally, no wheezes, no crackles, no accessory muscle use. HEART: Regular rate and rhythm, S1, S2 without murmur, rub or gallop. ABDOMEN: Soft, NT, ND, normoactive bowel sounds, no guarding, no rebound, no hepatosplenomegaly, no masses. EXTREMITIES: 2+ pulses, warm, well-perfused, no edema. NEUROLOGICAL: Cranial nerves II through XII grossly intact. Normal speech, gait not observed. PSYCH: Normal mood, normal affect. SKIN: Warm, dry, normal turgor, no rashes or lesions noted CBCD WBC 5.5 K/mm3 (4.0-10.0) 06/07/19 05:24 RBC 4.41 M/mm3 (4.00-5.60) 06/07/19 05:24 Hgb 13.3 GM/dL (11.7-16.9) 06/07/19 05:24 Hct 40.1 % (35.4-49) 06/07/19 05:24 MCV 90.9 fl (80-96) 06/07/19 05:24 MCHC 33.1 g/dl (32.0-35.9) 06/07/19 05:24 RDW 16.0 % (11.9-15.9) H 06/07/19 05:24 Plt Count 317 K/MM3 (134-434) 06/07/19 05:24 MPV 9.3 fl (7.5-11.1) 06/07/19 05:24 CMP Sodium 143 mmol/L (136-145) 06/07/19 05:24 Potassium 4.4 mmol/L (3.5-5.1) 06/07/19 05:24 Chloride 110 mmol/L (98-107) H 06/07/19 05:24 Carbon Dioxide 28 mmol/L (21-32) 06/07/19 05:24 Anion Gap 4 MMOL/L (8-16) L 06/07/19 05:24 BUN 8.9 mg/dL (7-18) 06/07/19 05:24 Creatinine 0.6 mg/dL (0.55-1.3) 06/07/19 05:24 Random Glucose 106 mg/dL (74-106) 06/07/19 05:24 Calcium 9.5 mg/dL (8.5-10.1) 06/07/19 05:24 Total Bilirubin 0.2 mg/dL (0.2-1) 06/05/19 06:00 AST 10 U/L (15-37) L 06/05/19 06:00 ALT 18 U/L (13-61) 06/05/19 06:00 Alkaline Phosphatase 53 U/L (45-117) 06/05/19 06:00 Total Protein 5.5 g/dl (6.4-8.2) L 06/05/19 06:00 Albumin 2.7 g/dl (3.4-5.0) L 06/05/19 06:00 CARDIAC ENZYMES Creatine Kinase 132 U/L (26-308) 06/04/19 10:26 Troponin I < 0.02 ng/ml (0.00-0.05) 06/04/19 10:26 Home Medications Medication Instructions Recorded Sennosides [Senna -] 2 tab PO HS #0 tablet 12/06/12 Baclofen 10 mg PO HS 01/03/19 Clozapine [Clozaril] 300 mg PO HS 01/03/19 Divalproex Sodium [Depakote] 500 mg PO DAILY 01/03/19 Divalproex Sodium [Depakote] 750 mg PO HS 01/03/19 Famotidine [Pepcid] 40 mg PO HS 01/03/19 Gabapentin 300 mg PO TIDCM 01/03/19 Tamsulosin HCl [Flomax -] 0.4 mg PO HS 01/03/19 metFORMIN HCL [Glucophage -] 500 mg PO BIDAC 01/03/19 Acetaminophen [Tylenol Extra 500 mg PO BIDAC 06/04/19 Strength] Microbiology 06/04/19 15:40 Blood - Peripheral Venous Blood Culture - Preliminary NO GROWTH OBTAINED AFTER 72 HOURS, INCUBATION TO CONTINUE FOR 2 DAYS. 06/04/19 15:40 Blood - Peripheral Venous Blood Culture - Preliminary NO GROWTH OBTAINED AFTER 72 HOURS, INCUBATION TO CONTINUE FOR 2 DAYS. 06/04/19 15:20 Urine - Urine Clean Catch Urine Culture - Final NO GROWTH OBTAINED ASSESSMENT AND PLAN: Patient is a 53yom with Pmhx of Schizophrenia ,and DM who presented from an independent living due to worsening gait and progressed weakness # Abnormal gait: possible extrapyramidal symptoms from antipsychotics with facial tardive dyskinesia s/p cogentin was stopped as per pschy. will [facility]. patient is at his baseline. Folate, B12, TSH/FT3/Ft4 nl. RPR non reactive # H/o Schizophrenia. mentation at base line, Cont clozapine and depakote # No signs of infection. pulmonary or urinary # H/o DM continue metformin # Abn TSH follow up as patient , repeat in a week # H/o Schizophrenia - DVT Px: lovenox patient is clinically stable for dc to his independent living.
[2019-06-08] MEDS: DIVALPROEX SODIUM 500 MG TABLET E.C. PO SCH (10:17)
[2019-06-08] MEDS: ENOXAPARIN NA (PORCINE) 40 MG/0.4 ML DISP.SYRIN SQ SCH (10:17)
[2019-06-08 10:20] VITALS: BP 108/81; PULSE 118; TEMP 97.7
--- NOTE | 2019-06-08 10:23 | DS ---
Physical Exam: SUBJECTIVE: Patient seen and examined OBJECTIVE: Vital Signs Period Temp Pulse Resp BP Sys/Lofton Pulse Ox Last 24 Hr 97.6 F-98.3 F 68-118 18-20 108-135/69-81 98-98 PHYSICAL EXAM GENERAL: The patient is awake, alert. No acute distress HEAD: NC/AT EYES: extraocular movements intact, sclera anicteric, conjunctiva clear. No ptosis. ENT: Ears normal, nares patent, oropharynx clear without exudates, moist mucous membranes. NECK: Trachea midline, full range of motion, supple. LUNGS: Breath sounds equal, clear to auscultation bilaterally, no wheezes, no crackles, no accessory muscle use. HEART: Regular rate and rhythm, S1, S2 without murmur, rub or gallop. ABDOMEN: Soft, nontender, nondistended, normoactive bowel sounds, no guarding, no rebound. EXTREMITIES: 2+ pulses, warm, well-perfused, no edema. NEUROLOGICAL: Cranial nerves II through XII grossly intact. Normal speech. Truncal ataxia with eyes close while standing. Irregular gait PSYCH: Normal mood. Pleasant. Endorses plans for the future SKIN: Warm, dry, normal turgor, no rashes or lesions noted LABS Laboratory Results - last 24 hr 06/07/19 06/07/19 06/07/19 12:00 17:13 20:55 POC Glucometer 151 164 136 06/08/19 06:20 POC Glucometer 114 HOSPITAL COURSE: Date of Admission:06/04/19 Date of Discharge: 06/08/19 53 yo m w/ PMH schizophrenia and DM who was brought into the ED from [facility] because of generalized weakness and lethargy. Had complaints of productive cough a few days prior to admission. Cough has resolved. CTH neg. UDS neg. Normal TSH, B12, folate. Neuro recommended bendadryl 50mg IV x1; started on Cogentin for EPS 2/2 antipsychotic meds. Psych(Chepuru) dc'd congentin bc Psych believed that pt has Tardive Dykenesia of buccal and oral type. Walked with PT, 100ft. Stable for dc back to [place]. Minutes to complete discharge: 32 Discharge Summary Problems reviewed: Yes Reason For Visit: WEAKNESS Current Active Problems Extrapyramidal symptom (Acute) Gait abnormality (Acute) Tardive dyskinesia (Acute) Condition: Stable - Instructions Diet, Activity, Other Instructions: You were admitted to hospital for evaluation of your gait. You were evaluated by neurologist, and psychiatrist; your symptoms may be secondary to your psychiatric medications. You are stable for discharge back to [facility] No medications were added to your home medications Continue taking your home medications as directed Ibuprofen was stopped. caution with chronic use of ibuprofen Follow up with your primary care physician within one- two days after discharge. Discuss your medication changes. Follow up with your psychiatrist within one week of discharge. A referral to Dr. French has been provided if you want, but better if you follow with your own Follow up with Neurologist within one week of discharge. A referral to Dr. Chacko has been provided Return to the nearest emergency department if you experience worsening symptoms , subjective fevers, chills,. shortness of breath, chest pain, palpitaitons, abdominal pain, nausea, vomiting, diarrhea, fall or any trauma. Referrals: Mauro Archer MD [Staff Physician] - Xu Ralph [Primary Care Provider] - Edwige French MD [Staff Physician] - Disposition: VNS/HOME HEALTH CARE - Home Medications Comprehensive Discharge Medication List: Ambulatory Orders Sennosides [Senna -] 2 tab PO HS #0 tablet 12/06/12 Baclofen 10 mg PO HS 01/03/19 Clozapine [Clozaril] 300 mg PO HS 01/03/19 Divalproex Sodium [Depakote] 500 mg PO DAILY 01/03/19 Divalproex Sodium [Depakote] 750 mg PO HS 01/03/19 Famotidine [Pepcid] 40 mg PO HS 01/03/19 Gabapentin 300 mg PO TIDCM 01/03/19 Tamsulosin HCl [Flomax -] 0.4 mg PO HS 01/03/19 metFORMIN HCL [Glucophage -] 500 mg PO BIDAC 01/03/19 Acetaminophen [Tylenol Extra Strength] 500 mg PO BIDAC 06/04/19 This patient is new to me today: No Emergency Visit: No Critical Care patient: No - Discharge Referral Referred to [facility] No ATTENDING PHYSICIAN STATEMENT I saw and evaluated the patient. I reviewed the resident's note and discussed the case with the resident. I agree with the resident's findings and plan as documented. SUBJECTIVE: OBJECTIVE: ASSESSMENT AND PLAN:
--- NOTE | 2019-06-08 17:07 | PN ---
Progress Note (short form) - Note Progress Note: cc fall and abnormal movement HPI 53 year old male history of Schizophrenia, DM. He presents to ed as he has fall. Patient has difficulty ambulating and has been runnign into things. Patient denies nay neck pain or back , no bowel or bladder incontinence. Patient has ct head and ct of c spine it was unremarkable. He has been on antipyschotic medication for a long time. There is no new symptoms, and patient is being discharged back to [place] NEUROLOGICAL EXAMINATION Alert oriented x 2, sitting at nursing station, no acute distress, neck is supple vss eomi, pupils reactive no face asymmetry he has action tremors in upper extremity and there is dyskinesia at rest well He can stand up but find it very difficulty to walk as he is swaying to both side. there is slight bradykinesia [id number] reflex are symmetrical planter is flexor ct head and ct c spine is normal Assessment/Plan 53 year old male history of schizophrenia, DM. He has difficulty with walking , there is no evidence of cord compression, stroke. His symptoms are due to due to extrpyramidal syndrome secondary to antipsychotic medication use. Plan: antipsychomatic medicaiton as per psych - pt - cogentin was stopped by psych - patient is being discharged today, follow up outpatient as needed. Thanking you so much
== END 2019-06-08 14:30 | disposition home health service (06) | DRG 42 ==
LOC: JER 09:40 → JERBED 14:28 → J4S 22:06
PROVIDERS: ADMIT Internal Medicine; ATTEND Internal Medicine
DX: G25.9 Extrapyramidal and movement disorder, unspecified (principal); R41.82 Altered mental status, unspecified; T42.4X5A Adverse effect of benzodiazepines, initial encounter; F17.210 Nicotine dependence, cigarettes, uncomplicated; R26.9 Unspecified abnormalities of gait and mobility; F20.9 Schizophrenia, unspecified; E11.9 Type 2 diabetes mellitus without complications
CPT/HCPCS: 36415; 70450-TC; 71045-TC-FY; 72125-TC; 80048; 80053; 80164; 80307; 81003; 82550; 82607; 82746; 82962; 83735; 84100; 84439; 84443; 84481; 84484; 85025; 85027; 86593; 87040; 87086; 93005; 93010; 97116-GP; 97161-GP; 99284-25; J7030

== ENCOUNTER 2020-07-28 09:49 | Inpatient (IN) | payer OTHER ==
[2020-07-28 11:04] LABS: BASO % 0.4 % (0-2.0); EOS % 1.6 % (0-4.5); HEMATOCRIT 38.1 % (35.4-49); HEMOGLOBIN 12.4 GM/dL (11.7-16.9); LYMPH % 18.8 % (8-40); MCH 29.2 pg (25.7-33.7); MCHC 32.5 g/dl (32.0-35.9); MEAN PLT VOLUME 9.4 fl (7.5-11.1); NEUT % 74.2 % (42.8-82.8); PLATELET COUNT 309 K/MM3 (134-434); RBC 4.23 M/mm3 (4.00-5.60); RDW 16.2 % (11.9-15.9); WHITE BLOOD COUNT 14.2 K/mm3 (4.0-10.0)
[2020-07-28 11:22] LABS: CHLORIDE 109 mmol/L (98-107); SODIUM 139 mmol/L (136-145)
[2020-07-28 11:23] LABS: MAGNESIUM 1.9 mg/dL (1.8-2.4)
[2020-07-28 11:24] LABS: CALCIUM 9.1 mg/dL (8.5-10.1)
[2020-07-28 11:25] LABS: ALBUMIN 3.2 g/dl (3.4-5.0); ANION GAP 4 MMOL/L (8-16); CO2 26 mmol/L (21-32); GLUCOSE,RANDOM 116 mg/dL (74-106)
[2020-07-28 11:27] LABS: PHOSPHOROUS 2.1 mg/dL (2.5-4.9)
[2020-07-28 11:28] LABS: CREATININE 0.8 mg/dL (0.55-1.3); SGOT/AST 8 U/L (15-37); SGPT/ALT 16 U/L (13-61)
[2020-07-28 11:29] LABS: BILIRUBIN,TOTAL 0.3 mg/dL (0.2-1); TOT PROT 7.1 g/dl (6.4-8.2)
[2020-07-28 11:30] LABS: ALK PHOS 71 U/L (45-117)
[2020-07-28] MEDS ORDERED: SODIUM CHLORIDE 0.9% 500 ML INFUS.BAG IV ONE (11:53)
[2020-07-28 12:02] LABS: VENOUS BASE EXCESS -2.6 mmol/L (-2-2); VENOUS O2 SATURATION 98.2 % (70-80); VENOUS PCO2 36.4 mmHg (38-52); VENOUS PH 7.394 (7.310-7.410)
[2020-07-28 15:31] LABS: PH,URINE 5.5 (5.0-8.0); URINE APPEARANCE CLEAR; URINE BILIRUBIN NEGATIVE (NEGATIVE); URINE COLOR YELLOW; URINE GLUCOSE (UA) TRACE (NEGATIVE); URINE KETONE TRACE (NEGATIVE); URINE LEUK ESTERASE NEGATIVE (NEGATIVE); URINE NITRITE NEGATIVE (NEGATIVE); URINE PROTEIN NEGATIVE (NEGATIVE); URINE UROBILINOGEN 0.2 mg/dL (0.2-1.0)
[2020-07-28] MEDS ORDERED: ASPIRIN 81 MG CHEWABLE TABLETS PO ONE (20:48)
[2020-07-28] MEDS ORDERED: ASPIRIN 81 MG CHEWABLE TABLETS ONE (20:59)
[2020-07-29 02:34] VITALS: BMI 25.0
[2020-07-29] MEDS ORDERED: SODIUM PHOSPHATE - 15 MM in SODIUM CHLORIDE 250 ML IVPB ONE (03:00)
[2020-07-29] MEDS: INSULIN SLIDING SCALE (NOVOLOG) 1 VIAL SQ SCH ×4 (06:09→21:45)
[2020-07-29 06:45] LABS: BASO % 0.4 % (0-2.0); EOS % 4.1 % (0-4.5); HEMATOCRIT 34.4 % (35.4-49); HEMOGLOBIN 11.3 GM/dL (11.7-16.9); MCHC 32.9 g/dl (32.0-35.9); MEAN CELL VOLUME 91.1 fl (80-96); MEAN PLT VOLUME 9.9 fl (7.5-11.1); NEUT % 58.5 % (42.8-82.8); PLATELET COUNT 294 K/MM3 (134-434); RBC 3.78 M/mm3 (4.00-5.60); RDW 16.2 % (11.9-15.9); WHITE BLOOD COUNT 9.4 K/mm3 (4.0-10.0)
[2020-07-29 06:54] LABS: INR 1.09 (0.83-1.09); PROTHROMBIN TIME (PATIENT) 13.2 SEC (9.7-13.0)
[2020-07-29 07:11] LABS: CALCIUM 8.5 mg/dL (8.5-10.1)
[2020-07-29 07:12] LABS: ALBUMIN 2.8 g/dl (3.4-5.0); BLOOD UREA NITROGEN 16.2 mg/dL (7-18)
[2020-07-29 07:15] LABS: CREATININE 0.7 mg/dL (0.55-1.3); PHOSPHOROUS 3.8 mg/dL (2.5-4.9)
[2020-07-29 07:16] LABS: BILIRUBIN,TOTAL 0.2 mg/dL (0.2-1)
[2020-07-29 07:17] LABS: TOT PROT 6.2 g/dl (6.4-8.2)
[2020-07-29] MEDS: ASPIRIN COATED 81 MG TABLET.EC PO SCH (10:00)
[2020-07-29] MEDS: PANTOPRAZOLE 40 MG TABLET PO SCH (10:00)
[2020-07-29] MEDS: DIVALPROEX SODIUM 250 MG TABLET E.C. PO SCH (10:01)
[2020-07-29] MEDS ORDERED: PT OWN MED DRAWER 7, Y5N ONE ×2 (12:16→21:10)
[2020-07-29] MEDS: GABAPENTIN 300 MG CAPSULE PO SCH ×2 (12:17→17:22)
[2020-07-29] MEDS: HEPARIN NA (PORCINE) 5,000 UNITS/ML 1ML VIAL SQ SCH (21:45)
[2020-07-29] MEDS ORDERED: DIVALPROEX SODIUM 250 MG TABLET E.C. PO SCH (22:00)
[2020-07-29] MEDS ORDERED: cloZAPine 100 MG TABLET PO SCH (22:00)
[2020-07-29] MEDS ORDERED: FAMOTIDINE 20 MG TABLET PO SCH (22:00)
[2020-07-29] MEDS ORDERED: BACLOFEN 10 MG TABLET (FP) PO SCH (22:00)
[2020-07-30] MEDS: INSULIN SLIDING SCALE (NOVOLOG) 1 VIAL SQ SCH ×3 (06:05→16:54)
[2020-07-30 09:08] LABS: BASO % 0.4 % (0-2.0); EOS % 2.1 % (0-4.5); HEMATOCRIT 33.9 % (35.4-49); HEMOGLOBIN 11.7 GM/dL (11.7-16.9); LYMPH % 12.2 % (8-40); MCH 31.2 pg (25.7-33.7); MCHC 34.5 g/dl (32.0-35.9); MEAN CELL VOLUME 90.4 fl (80-96); MONO % 5.8 % (3.8-10.2); NEUT % 79.5 % (42.8-82.8); PLATELET COUNT 187 K/MM3 (134-434); RBC 3.75 M/mm3 (4.00-5.60); RDW 12.8 % (11.9-15.9); WHITE BLOOD COUNT 10.1 K/mm3 (4.0-10.0)
[2020-07-30 09:24] LABS: CALCIUM 7.9 mg/dL (8.5-10.1)
[2020-07-30 09:25] LABS: BLOOD UREA NITROGEN 11.3 mg/dL (7-18)
[2020-07-30] MEDS: PANTOPRAZOLE 40 MG TABLET PO SCH (09:25)
[2020-07-30] MEDS: ASPIRIN COATED 81 MG TABLET.EC PO SCH (09:25)
[2020-07-30] MEDS: GABAPENTIN 300 MG CAPSULE PO SCH ×3 (09:26→16:51)
[2020-07-30] MEDS: DIVALPROEX SODIUM 250 MG TABLET E.C. PO SCH (09:26)
[2020-07-30] MEDS: HEPARIN NA (PORCINE) 5,000 UNITS/ML 1ML VIAL SQ SCH (09:27)
[2020-07-30 09:28] LABS: CREATININE 0.8 mg/dL (0.55-1.3)
[2020-07-30 09:29] LABS: BILIRUBIN,TOTAL 0.4 mg/dL (0.2-1); TOT PROT 5.7 g/dl (6.4-8.2)
[2020-07-30 18:33] VITALS: BP 137/72; PULSE 107; TEMP 98.3
[2020-08-02 20:07] LABS: HEP B CORE AB, TOT Positive (Negative)
== END 2020-07-30 21:00 | DRG 351 ==
LOC: JER 09:49 → JERBED 22:26 → J4S 23:46
PROVIDERS: ADMIT Hospitalist; ATTEND Nurse Practitioner Family
DX: R29.898 Other symptoms and signs involving the musculoskeletal system (principal); E11.9 Type 2 diabetes mellitus without complications; I10 Essential (primary) hypertension; F20.9 Schizophrenia, unspecified; F17.200 Nicotine dependence, unspecified, uncomplicated; G40.909 Epilepsy, unspecified, not intractable, without status epilepticus; R26.9 Unspecified abnormalities of gait and mobility; M19.90 Unspecified osteoarthritis, unspecified site; G95.0 Syringomyelia and syringobulbia; R00.0 Tachycardia, unspecified; M50.31 Other cervical disc degeneration, high cervical region; E83.39 Other disorders of phosphorus metabolism
CPT/HCPCS: 36415; 70450-TC; 71045-TC-FY; 72141-TC; 72146-TC; 72147-TC; 72148-TC; 80053; 80061; 80164; 81003; 82010; 82550; 82607; 82803; 82962; 83036; 83721; 83735; 84100; 84443; 84484; 85025; 85610; 86704; 86706; 86707; 86708; 86709; 86780; 87040; 87086; 87186; 87340; 93005; 93010; 97116-GP; 97161-GP; 99285-25; C9803; J0475; J1644; U0003